=== PATIENT | male | born 1990 | race Caucasian/White ===

== ENCOUNTER → 2017-06-26 | Outpatient (CLI) | payer OTHER ==
[~2017-06-26] MED LIST: AMO250 PO; IBUP-1618 PO
--- NOTE | 2017-06-26 08:18 | RADIOLOGY IMAGING REPORT ---
[place] [facility] [place] NAME: Hossein Vaz : 1990 MR: [id number] V: [id number] EXAM DATE: ORDERING PHYSICIAN: ROCIO NELSON TECHNOLOGIST: Location: [facility] [place] Patient: Hossein Vaz : 1990 Visit/Account:[id number] Date of Sevice: 06/26/2017 ORBITS FOREIGN BODY 1 VIEW Orbital views pre-MRI FINDINGS: No metallic foreign bodies identified. IMPRESSION: 1. Negative orbital views Report Dictated By: Dinesh Shields MD at 06/26/2017 8:11 AM Report E-Signed By: Dinesh Shields MD at 06/26/2017 8:14 AM WSN:[id number]
--- NOTE | 2017-06-26 11:34 | RADIOLOGY IMAGING REPORT ---
FACILITY: [facility] PATIENT NAME: Hossein Vaz : 1990 MR: [id number] V: [id number] EXAM DATE: ORDERING PHYSICIAN: ROCIO NELSON TECHNOLOGIST: Location: [facility] - [place] Patient: Hossein Vaz : 1990 Visit/Account:[id number] Date of Sevice: 06/26/2017 KNEE LEFT W/O CONTRAST HISTORY: Knee pain COMPARISON: None TECHNIQUE: Multiplanar/multisequence was obtained through the left knee without contrast. Contrast: None FINDINGS: ACL: Intact with a normal contour through the intracondylar notch. PCL: Abnormal contour to the PCL with fluid signal at its midportion consistent with full-thickness t ear. MCL: Mild surrounding edema although the ligament is intact. LCL: Fibular collateral ligament, biceps femoris tendon and popliteus tendons are intact. Iliotibial band is normal. Medial joint space: Intrasubstance high signal within the body and posterior horn without discrete te ar. Articular cartilage is normal. Lateral joint space: No lateral meniscal tear. Articular cartilage is normal. Joint effusion: Moderate joint effusion. Popliteal cyst: Moderate popliteal cyst with debris and fluid tracking inferiorly. Bone marrow: Nondisplaced, intra-articular fracture involving the anterior aspect of the medial tibia l plateau. Quadriceps and patellar tendons: Normal Patellofemoral joint: Normal articular cartilage. The retinaculum are intact. No patellar subluxation . Soft tissues: Posterior soft tissue edema. Other findings: None significant IMPRESSION: 1. Complete tear of the PCL at its midportion. 2. Mild edema surrounding the MCL although the ligament is intact and may represent low-grade sprain. 3. Moderate joint effusion. 4. Moderate popliteal cyst with debris and fluid tracking inferiorly which may indicate rupture. 5. Nondisplaced intra-articular fracture involving the anterior aspect of the medial tibial plateau. Report Dictated By: Tavares Prado MD at 06/26/2017 11:25 AM Report E-Signed By: Tavares Prado MD at 06/26/2017 11:30 AM WSN:[id number]
== END ==
LOC: MRI 07:38
PROVIDERS: ATTEND Orthopaedic Surgery
DX: R60.0 Localized edema (principal); M25.462 Effusion, left knee; S83.207A Unspecified tear of unspecified meniscus, current injury, left knee, initial encounter; M71.22 Synovial cyst of popliteal space [Baker], left knee; S82.145A Nondisplaced bicondylar fracture of left tibia, initial encounter for closed fracture; T14.90XA Injury, unspecified, initial encounter
CPT/HCPCS: 70030

== ENCOUNTER → 2017-07-16 | Outpatient (CLI) | payer OTHER ==
--- NOTE | 2017-07-16 16:30 | RADIOLOGY IMAGING REPORT ---
FACILITY: [facility] - [place] PATIENT NAME: Hossein Vaz : 1990 MR: [id number] V: [id number] EXAM DATE: ORDERING PHYSICIAN: ELVIS STRAUSS TECHNOLOGIST: Location: [facility] - [place] Patient: Hossein Vaz : 1990 Visit/Account:[id number] Date of Sevice: 07/16/2017 VENOUS DOPP LOW LEFT EXTREMITY HISTORY: Recent knee surgery, pain and swelling left lower extremity COMPARISON: None. FINDINGS: Grayscale, duplex and color Doppler interrogation of the left lower extremity deep veins from common femoral vein to proximal calf was completed. The greater saphenous vein in the left proximal thigh wa s evaluated using similar technique. Common femoral vein - Negative. Femoral vein - there is echogenic noncompressible clot in the mid and distal left superficial femoral vein Deep femoral vein - Negative. Popliteal vein - noncompressible echogenic clot is noted in the distal popliteal vein extending into the upper calf Visualized deep calf veins - echogenic noncompressible clot is noted in the proximal peroneal and pos terior tibial veins. Popliteal fossa: Parrish's cyst is noted measuring 2.6 x 5.9 x 1.8 cm Greater saphenous vein in the proximal thigh: Negative. IMPRESSION: 1. Study is positive for DVT in the mid and distal left superficial femoral vein, distal popliteal v ein extending into the peroneal and posterior tibial veins of the calf. Results were called to MIRTA Lopez for ELVIS STRAUSS at 07/16/2017 4:25 PM. Report Dictated By: Manoj Harvey MD at 07/16/2017 4:16 PM Report E-Signed By: Manoj Harvey MD at 07/16/2017 4:26 PM WSN:[email or web address]
== END ==
LOC: NUC 15:11
PROVIDERS: ATTEND Orthopaedic Surgery
DX: I82.412 Acute embolism and thrombosis of left femoral vein (principal)

== ENCOUNTER → 2017-11-19 | Outpatient (CLI) | payer OTHER ==
[~2017-11-19] MED LIST changes: +RIVA20TA PO; +School release
[2017-11-19 16:42] LABS: PLATELET COUNT, AUTOMATED 210 K/uL (150-450)
--- NOTE | 2017-11-19 17:56 | RADIOLOGY IMAGING REPORT ---
[place] [facility] [place] Hossein Vaz : 1990 MR: [id number] V: [id number] EXAM DATE: ORDERING PHYSICIAN: DANNIELLE ADAIR TECHNOLOGIST: Location: [facility] Patient: Hossein Vaz : 1990 Visit/Account:[id number] Date of Sevice: 11/19/2017 CTA CHEST WW/O CNTR (PULM ANG) HISTORY: see dx TECHNIQUE: CTA chest with intravenous contrast attention to pulmonary arteries. Sagittal, coronal a nd slab 3D MIP coronal reconstructed images were also created for further evaluation and interpretati on. CONTRAST: Isovue-370 75 mls. One of the following dose optimization techniques was utilized in the performance of this exam: Autom ated exposure control; adjustment of the mA and/or kV according to the patient's size; or use of an i terative reconstruction technique. Specific details can be referenced in the facility's radiology C T exam operational policy. COMPARISON: None. FINDINGS: Heart/coronary vessels: Negative. Pulmonary arteries: There is no filling defect to suggest pulmonary embolus. Thoracic aorta: Unremarkable. Mediastinum: No findings of mediastinal or hilar lymphadenopathy. Lymph nodes: No findings of axillary lymphadenopathy. Lungs/pleura: There is no finding of an infiltrate or pleural effusion. Visualized upper abdomen: Negative. Bones/soft tissues: Negative. IMPRESSION: 1. Normal CT scan of the chest. No findings of pulmonary embolus. No findings of an infiltrate or lym phadenopathy. Results were called to DANNIELLE ADAIR M.D. At 11/19/2017 5:52 PM. Report Dictated By: Trey Lawrence MD at 11/19/2017 5:47 PM Report E-Signed By: Trey Lawrence MD at 11/19/2017 5:52 PM WSN:[id number]
== END ==
LOC: LAB 16:04
PROVIDERS: ATTEND Internal Medicine
DX: R07.1 Chest pain on breathing (principal); R07.9 Chest pain, unspecified; Z86.718 Personal history of other venous thrombosis and embolism
CPT/HCPCS: 36415; 71275; 82040; 82247; 82310; 82374; 82435; 82565; 82947; 84075; 84132; 84155; 84295; 84443; 84450; 84460; 84520; 85025